=== PATIENT | female | born 1965 | race Caucasian/White ===

== ENCOUNTER 2016-07-13 14:47 | Emergency (ER) | payer OTHER ==
[~2016-07-13] VITALS: Wt 100.0 kg
[~2016-07-13 14:47] MED LIST: ALBU8.5H3 INH; PRED20TA PO
[2016-07-13] MEDS ORDERED: DIPHTH/TET/ACEL PERTUSS (ADULT) 0.5 ML VIAL IM* ONE (16:00)
[2016-07-13] MEDS ORDERED: LIDOCAINE 1% (MDV) 20 ML INJ SC ONE (16:00)
[2016-07-13] MEDS ORDERED: KETOROLAC 60 MG INJ IM STA (16:09)
[2016-07-13] MEDS ORDERED: CEPH500C PO (17:42)
[2016-07-13] MEDS ORDERED: ULT50 PO (17:42)
--- NOTE | 2016-07-13 17:44 | ERD ---
ER Documentation Chief Complaint Date/Time DATE: 07/13/16 TIME: 17:43 Chief Complaint lac on right farooq HPI This 51-year-old female presents with right farooq laceration after having a treadmill fall on her. She has restricted range of motion weakness. Her tetanus is not up-to-date. ROS All systems reviewed and are negative except as per history of present illness. Medications Home Meds Active Scripts Cephalexin* (Cephalexin*) 500 Mg Capsule, 500 MG PO Q6 for 7 Days, #28 CAP Prov:DAO RAYGOZA MD 07/13/16 Tramadol HCl (Tramadol HCl) 50 Mg Tablet, 50 MG PO Q4 Y for PAIN, #18 TAB Prov:DAO RAYGOZA MD 07/13/16 Prednisone* (Prednisone*) 20 Mg Tab, 40 MG PO DAILY for 4 Days, TAB Prov:BK MACKEY PA-C 06/19/16 Albuterol Sulfate* (Proair HFA*) 8.5 Gm Hfa.aer.ad, 2 PUFF INH Q4, #1 INHALER Prov:BK MACKEY PA-C 06/19/16 Allergies Allergies: Coded Allergies: aspirin (Unverified Allergy, Unknown, 06/19/16) PMhx/Soc Medical and Surgical Hx: pt denies Surgical Hx History of Surgery: Yes (tubal ligation) Anesthesia Reaction: No Hx Neurological Disorder: No Hx Respiratory Disorders: Yes (ASTHMA) Hx Cardiac Disorders: No Hx Psychiatric Problems: No Hx Miscellaneous Medical Probl: No Hx Alcohol Use: No Hx Substance Use: No Hx Tobacco Use: No Smoking Status: Never smoker Physical Exam Vitals Vital Signs Date Time Temp Pulse Resp B/P Pulse Ox O2 Delivery O2 Flow Rate FiO2 07/13/16 15:06 99.7 74 18 134/86 99 Physical Exam Const: [] Alert, [id number]. Head: Atraumatic Eyes: Normal Conjunctiva ENT: Normal External Ears, Nose and Mouth. Neck: Full range of motion..~ No meningismus. Resp: Clear to auscultation bilaterally Cardio: Regular rate and rhythm, no murmurs Abd: Soft, non tender, non distended. Normal bowel sounds Skin: No petechiae or rashes Back: No midline or flank tenderness Ext: No cyanosis, or edema. There is approximately 5 cm laceration on the anterior aspect of the right farooq. There is minimal active bleeding, there is no warmth, erythema, streaking. There is no evidence of tendon or neurologic deficits. Neur: Awake and alert Psych: Normal Mood and Affect Results 24 hrs Current Medications Medications (Trade) Dose Ordered Sig/Kirt Route PRN Reason Start Time Stop Time Status Last Admin Dose Admin Diphtheria/ Tetanus/Acell Pertussis (Adacel) 0.5 ml ONCE ONCE IM* 07/13/16 16:00 07/13/16 16:01 DC 07/13/16 16:04 Lidocaine (Xylocaine 1% (Mdv) 20 ml) 20 ml ONCE ONCE SC 07/13/16 16:00 07/13/16 16:01 DC Ketorolac Tromethamine (Toradol) 60 mg ONCE STAT IM 07/13/16 16:09 07/13/16 16:12 DC 07/13/16 16:15 Procedures/MDM Patient was given a tetanus booster. X-ray Tib/Fib 2V Interpreted by me: Bones: No fracture Joints: No dislocation Foreign body: None. Impression-normal right tib-fib x-ray Procedure note-the right farooq laceration was irrigated copiously with normal saline. 8 cc of lidocaine was used for local infiltration. 9 3-0 nylon sutures were used to reapproximate the wound and the patient tolerated procedure well and was dressed. Patient appears to have a right farooq laceration without evidence of fracture, foreign body, tendon or neurologic deficit or bacterial infection. She was discharged home with a course of Keflex , tramadol instructions for wound check in 2 days and suture removal in 10-14 days. Departure Diagnosis: Primary Impression: Laceration Condition: Stable Patient Instructions: Laceration, All Additional Instructions: X-ray appears normal. Recommend wound check in 2 days and suture removal in 10- 14 days. Recheck otherwise for redness, fevers, new symptoms. DAO RAYGOZA MD Jul 13, 2016 17:44
--- NOTE | 2016-07-13 18:25 | RADRPT ---
PROCEDURE: XR Tibia and Fibula. CLINICAL INDICATION: Right leg pain status post trauma. TECHNIQUE: AP, lateral and oblique views of the right tibia and fibula were obtained. COMPARISON: No prior studies are available for comparison. FINDINGS: Reference narrows over the lateral and anterior aspects of the right leg. No evident underlying rad iographic abnormality. There is normal mineralization and alignment. No fracture or osseous lesion is identified. The joint s are unremarkable. There are normal soft tissues without evidence of soft tissue swelling. IMPRESSION: Normal right tibia and fibula. RPTAT: [facility] Physician Yecenia Date Time Electronically viewed and signed by Physician Yecenia on 07/13/2016 18:24 RS/
== END 2016-07-13 17:55 | disposition home or self-care (01) ==
LOC: FTE 14:47
DX: S81.811A Laceration without foreign body, right lower leg, initial encounter (principal); J45.909 Unspecified asthma, uncomplicated; W20.8XXA Other cause of strike by thrown, projected or falling object, initial encounter; Y92.9 Unspecified place or not applicable; Z23 Encounter for immunization
CPT/HCPCS: 12002; 73590; 90471; 90715; 96372; 99284; J1885